=== PATIENT | male | born 1965 | race Hispanic/Latino ===

== ENCOUNTER 2017-11-04 08:29 | Emergency (ER) | payer BC, OTHER ==
[2017-11-04 09:46] LABS: #Eosinphils 0.2 thou/uL (0.0-0.7); #Lymphocytes 1.4 thou/uL (1.20-3.40); #Monocytes 0.4 thou/uL (0.11-0.59); #Neutrophils 3.2 thou/uL (1.40-6.50); %Basophils 0.4 % (0.0-1.0); %Eosinophils 3.4 % (0.0-10.0); %Lymphocytes 27.4 % (21.0-51.0); %Monocytes 7.7 % (0.0-10.0); Hemoglobin 16.9 g/dL (14.0-18.0); Mean Corpuscular Hemoglobin 27.6 pg (27.0-31.0); Mean Corpuscular Volume 86.3 fl (80.0-94.0); Mean Platelet Volume 8.2 fL (7.4-10.4); Platelet Count 191 thou/uL (130-400); RBC Distribution Width 11.4 % (11.5-14.5); White Blood Cell (WBC) Count 5.2 thou/uL (4.8-10.8)
[2017-11-04 10:06] LABS: ALT (SGPT) 23 U/L (8-55); AST (SGOT) 18 U/L (5-34); Albumin 4.4 g/dL (3.5-5.0); Alkaline Phosphatase 97 U/L (40-150); Anion Gap 9 mmol/L (10-20); BUN (Urea Nitrogen) 15 mg/dL (8.4-25.7); Bilirubin, Total 0.6 mg/dL (0.2-1.2); CK (CPK) 92 U/L (30-200); Calc. Creatinine Clearance 0 mL/min (70-130); Calcium 9.6 mg/dL (7.8-10.44); Carbon Dioxide 27 mmol/L (22-29); Chloride 105 mmol/L (98-107); Estimated GFR-MDRD 90; Globulin 2.6 g/dL (2.4-3.5); Glucose 86 mg/dL (70-105); Potassium 4.3 mmol/L (3.5-5.1); Sodium 137 mmol/L (136-145)
[2017-11-04 10:32] LABS: Bilirubin Negative (Negative); Blood, Urine Negative (Negative); Clarity CLEAR (Clear); Glucose, Urine (Dipstick) Negative (Negative); Leukocyte Negative (Negative); Nitrite Negative (Negative); Protein, Urine (Dipstick) Negative (Neg-Trace); Specific Gravity, Urine 1.013 (1.002-1.036); Urobilinogen 0.2 mg/dL (0.2-1.0); pH, Urine 6.5 (5.0-9.0)
== END 2017-11-04 10:56 | disposition home or self-care (01) ==
LOC: ERS 08:29
DX: M79.1 Myalgia (principal)
CPT/HCPCS: 36415; 80053; 81003; 82550; 85025; 99283

== ENCOUNTER 2018-11-23 08:29 | Outpatient (CLI) | payer BC ==
--- NOTE | 2018-11-23 09:11 | SJPRAD ---
LUMBAR SPINE THREE VIEWS: History: Low back pain. FINDINGS: There is mild anterior wedging of the T11 and T12 vertebrae. There are osteophytes at these levels an d loss of disc space. Minimal wedging of L1. Mild degenerative spurring from the lumbar vertebrae. Th e lumbar vertebra otherwise maintain height and alignment and the lumbar disc spaces are preserved. N o evidence of spondylolisthesis. IMPRESSION: Mild anterior wedging of the lower thoracic vertebrae with degenerative changes as described. POS: [place]
== END 2018-11-23 08:30 | disposition home or self-care (01) ==
LOC: MWLC RAD 08:29
PROVIDERS: ATTEND Family Medicine
DX: M54.5 Low back pain (principal); E78.2 Mixed hyperlipidemia; M47.814 Spondylosis without myelopathy or radiculopathy, thoracic region
CPT/HCPCS: 80061

== ENCOUNTER 2021-06-27 06:13 | Day surgery (SDC) | payer BC ==
[2021-06-26 12:11] VITALS: BMI 31.9
[2021-06-27] MEDS ORDERED: Lidocaine 1% PF 5 ML VIAL ONE (08:40)
[2021-06-27] MEDS ORDERED: PROPOFOL 200 MG/20 ML VIAL ONE (08:40)
== END 2021-06-27 10:11 | disposition home or self-care (01) ==
LOC: SDC 06:13
PROVIDERS: ATTEND Internal Medicine Gastroenterology
PROC: 0DJD8ZZ Inspection of Lower Intestinal Tract, Via Natural or Artificial Opening Endoscopic (ICD-10-PCS; principal; 2021-06-27)
DX: Z12.11 Encounter for screening for malignant neoplasm of colon (principal); K57.30 Diverticulosis of large intestine without perforation or abscess without bleeding; K64.9 Unspecified hemorrhoids; Z86.010 Personal history of colon polyps; Z87.891 Personal history of nicotine dependence
CPT/HCPCS: J2704

== ENCOUNTER 2024-05-30 09:55 | Outpatient (CLI) | payer BC, OTHER | END 2024-05-30 09:56 | disposition home or self-care (01) | LOC: BICRAD 09:55 | PROVIDERS: ATTEND Family Medicine | DX: R05.3 Chronic cough (principal) | CPT/HCPCS: 71046 ==